=== PATIENT | male | born 1955 | race Caucasian/White ===

== ENCOUNTER 2020-12-11 18:45 | Emergency (ER) | payer MEDICAID ==
[~2020-12-11] VITALS: Ht 175.3 cm; Wt 136.5 kg
[2020-12-11 18:59] VITALS: BP_SYST 143
[2020-12-11 20:26] LABS: CALCIUM 8.9 mg/dL (8.4-11.0); CREATININE 0.64 mg/dL (0.55-1.30); POTASSIUM 3.6 mmol/L (3.5-5.1)
[2020-12-11 20:39] LABS: ALBUMIN 3.1 g/dL (3.4-4.8); TOTAL BILIRUBIN 0.6 mg/dL (0.0-1.0)
[2020-12-11 21:00] VITALS: BP_SYST 121
== END 2020-12-11 21:00 | disposition home or self-care (01) ==
LOC: SED 18:45
DX: E11.65 Type 2 diabetes mellitus with hyperglycemia (principal); E11.40 Type 2 diabetes mellitus with diabetic neuropathy, unspecified; R53.1 Weakness; Z88.1 Allergy status to other antibiotic agents; Z88.5 Allergy status to narcotic agent; Z88.6 Allergy status to analgesic agent; Z88.8 Allergy status to other drugs, medicaments and biological substances
CPT/HCPCS: 36415; 80053; 83036; 99283

== ENCOUNTER 2021-01-30 15:52 | Emergency (ER) | payer MEDICAID ==
[~2021-01-30] VITALS: Ht 175.3 cm; Wt 136.5 kg
[2021-01-30 15:55] VITALS: BP_SYST 115
--- NOTE | 2021-01-30 15:55 | NUR ---
Patient triaged and placed in waiting room. VSS and patient appears in no acute distress at this time. Accompanied by SELF, awaiting available bed, and MD notified of need for MSE.
[2021-01-30 16:18] VITALS: BP_SYST 115
--- NOTE | 2021-01-30 16:18 | NUR ---
EKG DONE ON ARRIVAL.
--- NOTE | 2021-01-30 16:20 | NUR ---
DR. ALEJO TO TRIAGE TO ASSESS.
--- NOTE | 2021-01-30 20:00 | NUR ---
Patient given written and verbal discharge instructions and verbalizes understanding. DR. SAPNA CHAPARRO MD discussed with patient the results and treatment provided. Patient in stable condition. ID arm band removed. Patient educated on pain management and to follow up with PMD. Pain Scale 0/10. Opportunity for questions provided and answered.
== END 2021-01-30 20:00 | disposition home or self-care (01) ==
LOC: SED 15:52
DX: R07.9 Chest pain, unspecified (principal); E11.9 Type 2 diabetes mellitus without complications; Z88.5 Allergy status to narcotic agent; Z88.6 Allergy status to analgesic agent; Z79.899 Other long term (current) drug therapy
CPT/HCPCS: 93005; 99283